=== PATIENT | female | born 1970 | race Caucasian/White ===

== ENCOUNTER 2017-06-03 19:19 | Emergency (ER) | payer OTHER ==
[2017-06-03] MEDS ORDERED: NS 1,000 ML IV ONE ×2 (20:06→20:17)
[2017-06-03] MEDS ORDERED: METOCLOPRAMIDE 10 MG/2 ML VIAL IVP ONE (20:17)
[2017-06-03] MEDS ORDERED: DEXAMETHASONE 10 MG/ML VIAL IVP ONE (20:17)
--- NOTE | 2017-06-03 20:21 | EDPHY ---
H & P Time Seen by Provider: 06/03/17 19:35 HPI/ROS: CHIEF COMPLAINT: Migraine headache HISTORY OF PRESENT ILLNESS: 46-year-old female presents with a migraine headache. Onset of headache yesterday, gradually increasing since then. The pain became severe today and associated with photophobia and nausea. She took Imitrex just prior to arrival with some relief. However she continues to have a moderate headache and severe nausea. Similar to prior migraine TORRES's. REVIEW OF SYSTEMS: Constitutional: No fever, no recent illness Eyes: No visual changes ENT: No sore throat Respiratory: No cough, no shortness of breath Cardiac: No chest pain Gastrointestinal: no vomiting, no abdominal pain Genitourinary: no dysuria Musculoskeletal: No myalgias Skin: No rash Neurological: no numbness, no weakness Psychiatric: No depression Past Medical/Surgical History: Migraines Social History: No recent alcohol Smoking Status: Never smoked Physical Exam: General Appearance: Alert, pleasant, appears in pain Eyes: Pupils equal and round, no conjunctival pallor ENT, Mouth: Mucous membranes moist Neck: Normal inspection Respiratory: Lungs are clear to auscultation Cardiovascular: Regular rate and rhythm Gastrointestinal: Abdomen is soft and nontender Neurological: Alert, oriented x3, cranial nerves II through XII intact, motor 5 /5, sensory intact to light touch Skin: Warm and dry, no rash Extremities: Normal inspection Psychiatric: Mood and affect normal Constitutional: Initial Vital Signs Temperature (C) 36.3 C 06/03/17 19:24 Heart Rate 61 06/03/17 19:24 Respiratory Rate 18 06/03/17 19:24 Blood Pressure 140/77 H 06/03/17 19:24 O2 Sat (%) 94 06/03/17 19:24 O2 Delivery Mode Room Air Allergies/Adverse Reactions: erythrosine sodium Allergy (Verified 06/03/17 19:23) gabapentin Allergy (Verified 06/03/17 19:23) zolpidem [From Ambien] Allergy (Verified 06/03/17 19:23) Medical Decision Making ED Course/Re-evaluation: This patient presents with a typical migraine headache. I do not suspect alternative etiology for TORRES. Neurologic exam is normal and there are no worrisome sx/signs. Reglan 10 mg, Benadryl 25 mg and Decadron 10 mg IV given. 9:00 p.m.-feels much better, but continues to have a moderate headache, 5/10, associated with mild nausea. Toradol 15 mg IV and Zofran 4 mg IV given. Plan to discharge the patient home she if she feel better after Toradol/Zofran. Feels much better, ready for d/c home. TORRES precautions given. Differential Diagnosis: Headache including but not limited to subarachnoid hemorrhage, migraine headache , tension headache and infectious causes such as meningitis, pharyngitis and sinusitis. - Data Points Medications Given: Discontinued Medications Dexamethasone (Decadron Injection) 10 mg IVP EDNOW ONE Stop: 06/03/17 20:18 Last Admin: 06/03/17 20:29 Dose: 10 mg Diphenhydramine HCl (Benadryl Injection) 25 mg IVP EDNOW ONE Stop: 06/03/17 20:18 Last Admin: 06/03/17 20:29 Dose: 25 mg Sodium Chloride (Ns) 1,000 mls @ 0 mls/hr IV ONCE ONE PRN Reason: Wide Open Stop: 06/03/17 20:07 Last Admin: 06/03/17 20:06 Dose: 1,000 mls Sodium Chloride (Ns) 1,000 mls @ 0 mls/hr IV ONCE ONE; Wide Open PRN Reason: Protocol Stop: 06/03/17 20:18 Last Admin: 06/03/17 20:29 Dose: Not Given Ketorolac Tromethamine (Toradol) 15 mg IVP EDNOW ONE Stop: 06/03/17 21:00 Last Admin: 06/03/17 21:12 Dose: 15 mg Metoclopramide HCl (Reglan Injection) 10 mg IVP EDNOW ONE Stop: 06/03/17 20:18 Last Admin: 06/03/17 20:29 Dose: 10 mg Ondansetron HCl (Zofran) 4 mg IVP EDNOW ONE Stop: 06/03/17 21:00 Last Admin: 06/03/17 21:12 Dose: 4 mg Departure - Departure Disposition: Home, Routine, Self-Care Clinical Impression: Migraine headache Condition: Good Instructions: Migraine Headache (ED) Referrals: Jagruti Rousseau MD [Medical Doctor] - As per Instructions Stand Alone Forms: Work Excuse
[2017-06-03] MEDS ORDERED: ONDANSETRON 4 MG/2 ML VIAL IVP ONE (20:59)
[2017-06-03] MEDS ORDERED: KETOROLAC 15 MG/1 ML SDV IVP ONE (20:59)
[2017-06-03 21:44] VITALS: RESP 16; TEMP 98.1
[2017-06-03 22:46] VITALS: BP 124/73; PULSE 62; O2SAT 94
== END 2017-06-03 22:44 | disposition home or self-care (01) ==
DX: G43.909 Migraine, unspecified, not intractable, without status migrainosus (principal); E86.9 Volume depletion, unspecified
CPT/HCPCS: 96374; J1100; J1200; J1885; J2405; J2765